=== PATIENT | female | born 1975 | race Caucasian/White ===

== ENCOUNTER 2016-10-31 19:00 | Emergency (ER) | payer MEDICARE ==
[2016-10-31 22:34] LABS: HEMOGLOBIN 15.1 gm/dl (12.3-15.3); RED BLOOD COUNT 5.08 M/UL (4.00-5.10)
[2016-10-31 22:46] LABS: BUN/CREATININE RATIO 18 (0-10)
== END 2016-11-01 00:15 | disposition home or self-care (01) ==
LOC: ER1 19:00
PROVIDERS: Family Medicine
DX: B34.9 Viral infection, unspecified (principal); Z88.5 Allergy status to narcotic agent; E11.9 Type 2 diabetes mellitus without complications; Z91.040 Latex allergy status
CPT/HCPCS: 36415; 71020; 80053; 82962; 85025; 87081; 87880; 99283

== ENCOUNTER 2020-09-06 13:09 | Emergency (ER) | payer MEDICARE, OTHER ==
[~2020-09-06 13:09] MED LIST: ACYCLOVIR400 MG PO; BACTRIM DS TAB1 EACH PO; CLINDAMYCIN HC150 MG PO; FLEXERIL 10 MG10 MG PO; GLUCOPHAGE XR500 MG PO; IBUPROFEN600 MG PO; INDERAL LA60 MG PO; NORCO 10-325 T1 EACH PO; NORCO 5-325 TA1 EACH PO; NORVASC10 MG PO; PAXIL10 MG PO; PROTONIX40 MG PO; TORADOL 10 MG T10 MG PO; TOUJEO MAX300 UNIT/1 SQ; TRAZODONE HCL50 MG PO; TRULICITY0.75 MG/0. SQ; ZOFRAN ODT 4 MG4 MG PO; ZOFRAN4 MG PO
[2020-09-06] MEDS ORDERED: BACTRIM DS TAB1 EACH PO (14:09)
[2020-09-06] MEDS ORDERED: NAPROSYN500 MG PO (14:12)
[2020-09-06] MEDS ORDERED: ZOFRAN ODT 4 MG4 MG SL (14:13)
[2020-11-18] MEDS ORDERED: COLACE 100MG C100 MG PO (06:35)
[2020-11-18] MEDS ORDERED: HYDROCODON-ACE1 EAC4 PO (08:36)
[2020-12-23] MEDS ORDERED: PROMETHAZINE HC25 M1 PO (08:13)
[2020-12-23] MEDS ORDERED: ACYCLOVIR PO (08:14)
== END 2020-09-06 14:27 | disposition home or self-care (01) ==
LOC: ER1 13:09
DX: L02.215 Cutaneous abscess of perineum (principal); I10 Essential (primary) hypertension; E11.9 Type 2 diabetes mellitus without complications; F17.200 Nicotine dependence, unspecified, uncomplicated; Z79.84 Long term (current) use of oral hypoglycemic drugs; Z88.6 Allergy status to analgesic agent; Z91.040 Latex allergy status
CPT/HCPCS: 96372; 99283; J1885

== ENCOUNTER → 2020-11-06 | Outpatient (CLI) | payer MEDICARE, OTHER ==
[~2020-11-06] MED LIST changes: +ACYCLOVIR PO; +COLACE 100MG C100 MG PO; +HYDROCODON-ACE1 EAC4 PO; +NAPROSYN500 MG PO; +PROMETHAZINE HC25 M1 PO; +ZOFRAN ODT 4 MG4 MG SL
[2020-11-06 10:48] LABS: BUN/CREATININE RATIO 30 (0-10)
== END ==
LOC: OPSV2 09:15
PROVIDERS: Orthopaedic Surgery
DX: Z01.818 Encounter for other preprocedural examination (principal); M65.311 Trigger thumb, right thumb
CPT/HCPCS: 36415; 80048; 93005

== ENCOUNTER → 2020-11-18 | Day surgery (SDC) | payer MEDICARE, OTHER ==
[~2020-11-18] VITALS: Ht 160 cm; Wt 89.4 kg
== END | disposition home or self-care (01) ==
LOC: OR 06:17
DX: M65.311 Trigger thumb, right thumb (principal); I10 Essential (primary) hypertension; E11.9 Type 2 diabetes mellitus without complications; F17.219 Nicotine dependence, cigarettes, with unspecified nicotine-induced disorders; K21.9 Gastro-esophageal reflux disease without esophagitis; F41.8 Other specified anxiety disorders; F43.10 Post-traumatic stress disorder, unspecified; Z82.49 Family history of ischemic heart disease and other diseases of the circulatory system; Z83.3 Family history of diabetes mellitus; Z83.6 Family history of other diseases of the respiratory system; Z88.6 Allergy status to analgesic agent; Z79.899 Other long term (current) drug therapy; Z79.84 Long term (current) use of oral hypoglycemic drugs; Z88.8 Allergy status to other drugs, medicaments and biological substances
CPT/HCPCS: 82962; J0690; J1100; J2001; J2250; J2405; J2550; J2704; J3010; J7120

== ENCOUNTER → 2020-12-23 | Day surgery (SDC) | payer MEDICARE, OTHER | END | disposition home or self-care (01) | LOC: OR 07:19 | DX: D12.3 Benign neoplasm of transverse colon (principal); K63.5 Polyp of colon; K64.0 First degree hemorrhoids; R59.0 Localized enlarged lymph nodes; I10 Essential (primary) hypertension; E11.9 Type 2 diabetes mellitus without complications; F31.9 Bipolar disorder, unspecified; F43.10 Post-traumatic stress disorder, unspecified; K21.9 Gastro-esophageal reflux disease without esophagitis; F41.0 Panic disorder [episodic paroxysmal anxiety]; F17.210 Nicotine dependence, cigarettes, uncomplicated; E66.8 Other obesity; Z68.37 Body mass index [BMI] 37.0-37.9, adult; Z88.5 Allergy status to narcotic agent; Z91.040 Latex allergy status; Z91.018 Allergy to other foods; Z79.891 Long term (current) use of opiate analgesic; Z79.4 Long term (current) use of insulin; Z79.899 Other long term (current) drug therapy | CPT/HCPCS: 82962; J2704; J7040 ==

== ENCOUNTER 2020-12-24 19:37 | Emergency (ER) | payer MEDICARE, OTHER | END 2020-12-24 21:20 | disposition home or self-care (01) | LOC: ER1 19:37 | DX: S90.121A Contusion of right lesser toe(s) without damage to nail, initial encounter (principal); E11.9 Type 2 diabetes mellitus without complications; I10 Essential (primary) hypertension; Z90.49 Acquired absence of other specified parts of digestive tract; Z90.89 Acquired absence of other organs; Z90.710 Acquired absence of both cervix and uterus; W22.8XXA Striking against or struck by other objects, initial encounter | CPT/HCPCS: 73630; 99283 ==

== ENCOUNTER → 2021-01-21 | Outpatient (CLI) | payer MEDICARE, OTHER | LOC: CATH 09:39 | DX: R55 Syncope and collapse (principal); I95.89 Other hypotension ==

== ENCOUNTER → 2021-04-13 | Outpatient (CLI) | payer MEDICARE, OTHER | LOC: KOH-I 16:49 | DX: M79.671 Pain in right foot (principal) | CPT/HCPCS: 73620 ==

== ENCOUNTER 2021-07-07 07:29 | Emergency (ER) | payer MEDICARE, OTHER ==
[~2021-07-07 07:29] MED LIST changes: -NORVASC10 MG PO; -PAXIL10 MG PO; -PROTONIX40 MG PO; -TOUJEO MAX300 UNIT/1 SQ
[2021-07-07 09:08] LABS: HEMOGLOBIN 15.6 gm/dl (12.3-15.3); RED BLOOD COUNT 5.3 M/UL (4.00-5.10); WHITE BLOOD COUNT 9.2 K/UL (4.5-11.0)
[2021-07-07 09:41] LABS: BUN/CREATININE RATIO 29 (0-10)
[2021-07-07 09:56] LABS: BORDETELLA PARAPERTUSSIS Not Detected (Not Detectd); BORDETELLA PERTUSSIS Not Detected (Not Detectd); CHLAMYDIA PNEUMONIAE Not Detected (Not Detectd); CORONAVIRUS HKU1 Not Detected (Not Detectd); CORONAVIRUS NL63 Not Detected (Not Detectd); CORONAVIRUS OC43 Not Detected (Not Detectd); CORONOAVIRUS 229E Not Detected (Not Detectd); HUMAN METAPNEUMOVIRUS Not Detected (Not Detectd); HUMAN RHINOVIRUS/ENTEROVIRUS Not Detected (Not Detectd); INFLUENZA A Not Detected (Not Detectd); INFLUENZA B Not Detected (Not Detectd); MYCOPLASMA PNEUMONIAE Not Detected (Not Detectd); PARAINFLUENZA VIRUS 1 Not Detected (Not Detectd); PARAINFLUENZA VIRUS 2 Not Detected (Not Detectd); PARAINFLUENZA VIRUS 3 Not Detected (Not Detectd); PARAINFLUENZA VIRUS 4 Not Detected (Not Detectd); RESPIRATORY SYNCYTIAL VIRUS Not Detected (Not Detectd)
[2021-07-07 11:07] LABS: SARS-CoV-2 NOT DETECTED (Not Detectd)
[2021-07-07] MEDS ORDERED: ZOFRAN4 MG PO (13:55)
[2021-07-07] MEDS ORDERED: HYDROCODON-ACE1 EAC6 PO (15:09)
[2021-07-09] MEDS ORDERED: PAXIL10 MG PO (06:35)
[2021-07-09] MEDS ORDERED: PROTONIX40 MG PO (06:59)
[2021-07-09] MEDS ORDERED: TOUJEO MAX300 UNIT/1 SQ (07:02)
[2021-07-09] MEDS ORDERED: NORVASC10 MG PO (07:03)
== END 2021-07-07 14:00 | disposition home or self-care (01) ==
LOC: ER1 07:29
PROVIDERS: Nurse Practitioner
DX: R11.2 Nausea with vomiting, unspecified (principal); R10.11 Right upper quadrant pain; E11.9 Type 2 diabetes mellitus without complications; I10 Essential (primary) hypertension; F17.210 Nicotine dependence, cigarettes, uncomplicated; Z90.710 Acquired absence of both cervix and uterus; Z90.49 Acquired absence of other specified parts of digestive tract; Z20.822 Contact with and (suspected) exposure to COVID-19; Z88.8 Allergy status to other drugs, medicaments and biological substances
CPT/HCPCS: 71045; 71250; 80053; 81001; 82550; 82553; 83690; 83874; 84484; 85025; 85610; 85730; 87633; 93005; 96374; 96375; 99284; J2270; J2405; Q9967

== ENCOUNTER 2021-07-09 07:18 | Inpatient (IN) | payer MEDICARE, OTHER ==
[~2021-07-09] VITALS: Ht 157.5 cm; Wt 96.6 kg
[~2021-07-09 07:18] MED LIST changes: +HYDROCODON-ACE1 EAC6 PO; +NORVASC10 MG PO; +PAXIL10 MG PO; +PROTONIX40 MG PO; +TOUJEO MAX300 UNIT/1 SQ
[2021-07-09 08:40] LABS: HEMOGLOBIN 14.9 gm/dl (12.3-15.3); RED BLOOD COUNT 4.89 M/UL (4.00-5.10); WHITE BLOOD COUNT 7.9 K/UL (4.5-11.0)
[2021-07-09 09:26] LABS: BUN/CREATININE RATIO 15 (0-10)
[2021-07-09] MEDS ORDERED: DRISDOL1250 MCG PO (15:13)
[2021-07-09] MEDS ORDERED: LEXAPRO20 MG PO (15:14)
[2021-07-09] MEDS ORDERED: LINZESS145 MCG PO (15:14)
[2021-07-09] MEDS ORDERED: CRESTOR10 MG PO (15:14)
[2021-07-09] MEDS ORDERED: SPIRONOLACTONE50 MG PO (15:14)
[2021-07-09] MEDS ORDERED: METOPROLOL TART25 MG PO (15:15)
[2021-07-10 07:45] LABS: HEMOGLOBIN 13.1 gm/dl (12.3-15.3); RED BLOOD COUNT 4.54 M/UL (4.00-5.10); WHITE BLOOD COUNT 8.9 K/UL (4.5-11.0)
[2021-07-10 08:22] LABS: BUN/CREATININE RATIO 33 (0-10)
[2021-07-11 06:53] LABS: HEMOGLOBIN 14.2 gm/dl (12.3-15.3); RED BLOOD COUNT 4.7 M/UL (4.00-5.10); WHITE BLOOD COUNT 10.4 K/UL (4.5-11.0)
[2021-07-11 07:10] LABS: BUN/CREATININE RATIO 22 (0-10)
[2021-07-11] MEDS ORDERED: LEVOFLOXACIN750 MG PO (11:43)
== END 2021-07-11 12:48 | disposition home or self-care (01) | DRG 195 ==
LOC: ER1 07:18 → CDU 11:37 → M/S 12:30
PROVIDERS: Nurse Practitioner; Physician Assistant; ADMIT Internal Medicine
DX: J18.9 Pneumonia, unspecified organism (principal); I10 Essential (primary) hypertension; E78.5 Hyperlipidemia, unspecified; Z20.822 Contact with and (suspected) exposure to COVID-19; K44.9 Diaphragmatic hernia without obstruction or gangrene; E11.9 Type 2 diabetes mellitus without complications; R59.1 Generalized enlarged lymph nodes; E66.9 Obesity, unspecified; H57.02 Anisocoria; K76.9 Liver disease, unspecified; F17.200 Nicotine dependence, unspecified, uncomplicated; F31.9 Bipolar disorder, unspecified; Z90.49 Acquired absence of other specified parts of digestive tract; Z98.890 Other specified postprocedural states; Z98.41 Cataract extraction status, right eye; Z90.89 Acquired absence of other organs; Z98.42 Cataract extraction status, left eye; Z88.8 Allergy status to other drugs, medicaments and biological substances; Z82.49 Family history of ischemic heart disease and other diseases of the circulatory system; Z83.3 Family history of diabetes mellitus; Z85.820 Personal history of malignant melanoma of skin; Z91.040 Latex allergy status; Z85.828 Personal history of other malignant neoplasm of skin; Z68.38 Body mass index [BMI] 38.0-38.9, adult; Z91.018 Allergy to other foods
CPT/HCPCS: 36415; 70450; 71045; 71250; 80048; 80053; 81001; 82550; 82553; 82728; 82962; 83605; 83690; 83735; 83874; 84484; 85025; 85610; 85652; 85730; 86140; 87040; 87633; 93005; 96374; 96375; 99284; 99285; J0456; J0696; J1100; J1885; J2270; J2405; J2550; J7030; Q9967; U0002

== ENCOUNTER → 2021-10-25 | Outpatient (CLI) | payer MEDICARE, OTHER ==
[~2021-10-25] MED LIST changes: +CRESTOR10 MG PO; +DRISDOL1250 MCG PO; +LEVOFLOXACIN750 MG PO; +LEXAPRO20 MG PO; +LINZESS145 MCG PO; +MELATONIN10 MG PO; +METFORMIN HCL500 M2 PO; +METOPROLOL TART25 MG PO; +PAROXETINE HCL20 MG PO; +SPIRONOLACTONE50 MG PO
[2021-10-25 08:56] LABS: BUN/CREATININE RATIO 17 (0-10)
== END ==
LOC: OPSV2 07:45
PROVIDERS: Orthopaedic Surgery
DX: Z01.818 Encounter for other preprocedural examination (principal); M65.332 Trigger finger, left middle finger; E11.9 Type 2 diabetes mellitus without complications; I10 Essential (primary) hypertension
CPT/HCPCS: 80048; 93005

== ENCOUNTER → 2021-11-08 | Day surgery (SDC) | payer MEDICARE, OTHER | END | disposition home or self-care (01) | LOC: OR 05:24 | DX: M65.332 Trigger finger, left middle finger (principal); M65.341 Trigger finger, right ring finger; I10 Essential (primary) hypertension; E78.5 Hyperlipidemia, unspecified; E11.9 Type 2 diabetes mellitus without complications; F17.210 Nicotine dependence, cigarettes, uncomplicated; Z88.5 Allergy status to narcotic agent; Z91.040 Latex allergy status; Z91.018 Allergy to other foods; Z79.84 Long term (current) use of oral hypoglycemic drugs; Z79.899 Other long term (current) drug therapy; Z20.822 Contact with and (suspected) exposure to COVID-19 | CPT/HCPCS: 82962; J0690; J1100; J2250; J2405; J2704; J2765; J3010; J7030; J7120 ==

== ENCOUNTER → 2022-02-08 | Outpatient (CLI) | payer MEDICARE, OTHER ==
[~2022-02-08] MED LIST changes: +ASPIRIN EC81 MG PO; +ESCITALOPRAM OX20 MG PO
== END ==
LOC: HEART 5 10:01
DX: J18.9 Pneumonia, unspecified organism (principal)
CPT/HCPCS: 71046; 94060; 94729